=== PATIENT | female | born 1955 | race Asian ===

== ENCOUNTER 2019-04-10 09:15 | Day surgery (SDC) | payer OTHER ==
[~2019-04-10] VITALS: Ht 149.9 cm; Wt 54.4 kg
[2019-04-10] MEDS ORDERED: LIDOCAINE 2% 100 MG/5 ML UJET TP ONE (11:22)
[2019-04-10] MEDS ORDERED: MIDAZOLAM 2 MG/2 ML VIAL ONE (11:22)
[2019-04-10] MEDS ORDERED: fentaNYL 0.05 MG/ML VIAL ONE (11:22)
[2019-04-10] MEDS ORDERED: MIDAZOLAM 2 MG/2 ML VIAL IVP ONE (13:00)
[2019-04-10] MEDS ORDERED: fentaNYL 0.05 MG/ML VIAL IVP ONE (13:00)
== END 2019-04-10 12:22 | disposition home or self-care (01) ==
LOC: MDS 09:15 → MMU 10:01 → MDS 12:22
PROVIDERS: ATTEND Internal Medicine Gastroenterology
DX: Z12.11 Encounter for screening for malignant neoplasm of colon (principal); K57.30 Diverticulosis of large intestine without perforation or abscess without bleeding; L91.8 Other hypertrophic disorders of the skin
CPT/HCPCS: G0121; J2250; J3010